=== PATIENT | female | born 1985 | race Caucasian/White ===

== ENCOUNTER → 2025-03-10 13:29 | Outpatient (REF) | payer OTHER, SELFPAY | LOC: HWRAD 13:29 | PROVIDERS: ATTENDING PHYSICIAN Nurse Practitioner Family; FAMILY PHYSICIAN Nurse Practitioner Family | DX: N93.9 Abnormal uterine and vaginal bleeding, unspecified (principal) | CPT/HCPCS: 76830; 76856 ==